=== PATIENT | male | born 1980 | race Caucasian/White ===

== ENCOUNTER 2019-12-10 09:27 | Outpatient (CLI) | payer SELFPAY ==
[2019-12-16 23:04] LABS: SARS-CoV-2 RNA Undetected (Undetected); SARS-CoV-2 Specimen Source Nasopharynx
== END 2019-12-10 09:47 ==
PROVIDERS: PCP Internal Medicine; Visit Provider Family Medicine
DX: Z20.828 Contact with and (suspected) exposure to other viral communicable diseases (principal); Z11.59 Encounter for screening for other viral diseases
CPT/HCPCS: U0003

== ENCOUNTER 2022-09-19 13:46 | Outpatient (REF) | payer OTHER, SELFPAY ==
[2022-09-19 13:32] LABS: Anion Gap 6.3 mmol/L (3-11); BUN 13 mg/dL (7-18); CO2 30.7 mmol/L (21.0-32.0); CREATININE 1.1 mg/dL (0.70-1.30); Calcium 9.3 mg/dL (8.5-10.1); Calculated LDL 99 mg/dL (<100); Chloride 103 mmol/L (98-107); Cholesterol 166 mg/dL (<200); Estimated GFR 85.95 (mL/min/1.73m2); Glucose 132 mg/dL (74-106); HDL Cholesterol 29 mg/dL (40-60); Potassium 4.4 mmol/L (3.5-5.1); Sodium 140 mmol/L (136-145); TSH (W/Ref FT4) 1.27 uIU/mL (0.36-3.74); Triglyceride 194 mg/dL (<150)
== END 2022-09-19 13:47 | disposition home or self-care (01) ==
LOC: LBN 13:46
PROVIDERS: PCP Nurse Practitioner Family; Visit Provider Nurse Practitioner Family
DX: Z76.89 Persons encountering health services in other specified circumstances (principal)
CPT/HCPCS: 80048; 80061; 84443